=== PATIENT | female | born 1950 | race Caucasian/White ===

== ENCOUNTER 2016-11-02 13:51 | Emergency (ER) | payer MEDICARE ==
[~2016-11-02] VITALS: Ht 157.5 cm; Wt 52.3 kg
[~2016-11-02 13:51] MED LIST: ALEN70TA2 PO; ASCO100089 PO; ASPI-973 PO; ATRV10T PO; CALC600T12 PO; CART1TAB5 PO; CARV25TA2 PO; CHOL500051 PO; DULO60CA61 PO; ENAL5TAB PO; HYDR-4003 PO; HYDR200T5 PO; HYDR25TA4 PO; LACT1CAP65 PO; MELA1TAB9 PO; METH-313 PO; METH25VI21 IM; MINO100C3 PO; MULT1CAP33 PO; POTA99TA21 PO; TRAZ-115 PO
[2016-11-02 13:55] VITALS: BP 79/51; PULSE 84; RESP 14; O2SAT 98
[2016-11-02] MEDS ORDERED: 0.9% Sodium Chloride 1,000 ML IV ONE (14:12)
[2016-11-02] MEDS ORDERED: Ondansetron 2 mg/mL 2 mL Inj IVPUSH PRN (14:15)
[2016-11-02 15:00] VITALS: BP 115/65; PULSE 82; RESP 14; O2SAT 97
[2016-11-02 15:25] LABS: BASOPHILS % (AUTO) 0.2 % (0-3); EOSINOPHILS % (AUTO) 0.6 % (0-5); MONOCYTES % (AUTO) 8.9 % (4-12); Mean Corpuscular Hemoglobin 32.4 pg (27.0-35.0); Mean Corpuscular Volume 101.1 fL (81-100); NEUTROPHILS % (AUTO) 85.6 % (40-74); Platelet Count 207 bil/L (150-400)
[2016-11-02] MEDS ORDERED: Iohexol 300 mg/mL 30 mL Inj PO ONE (15:30)
[2016-11-02 15:50] LABS: Magnesium 1.4 mg/dL (1.6-2.6)
--- NOTE | 2016-11-02 17:20 | DRSVH ---
PROCEDURE: CT ABDOMEN AND PELVIS WITH CONTRAST ([id number]) INDICATIONS: eval for SBO, given oral contrast TECHNIQUE: After the administration of oral contrast and intravenous contrast, 5 mm thick sections acquired from the diaphragm to the symphysis. 5 mm coronal and sagittal reformats were acquired. For radiation d ose reduction, the following was used: automated exposure control, adjustment of mA and/or kV accord ing to patient size. COMPARISON: [facility], CT, ABD/PELVIS W/O CON (PNL), 12/16/2012, 18:41. [facility], CT, CT CHEST WO CON, 11/27/2015, 11:00. FINDINGS: Image quality: Excellent. ABDOMEN: Lung bases: Lung bases are clear. Heart size is normal. Solid organs: Intrahepatic biliary ductal dilatation is seen in left and right lobes of the liver. D istal common bile duct is also markedly dilated measuring 16 mm. No definite radiopaque calculus is s een gallbladder is contracted therefore evaluation for wall thickening is precluded. No definite gall stones are identified. Pancreas is atrophic. Spleen and adrenal glands unremarkable. Kidneys grossly unremarkable. No hydronephrosis. Subcentimeter possible left renal cyst although too small to charact erize image 26 series 2. Peritoneum and bowel: Numerous dilated small bowel loops are present measuring up to 3.9 cm, and the re are scattered air-fluid levels. Distal small bowel and cecal wall thickening is present, for examp le images 21-41 series 2 in the right lower quadrant. No abscess seen. The colon is relatively decomp ressed. The rectum is decompressed. No free air or free fluid. Small amount of fluid seen within the distal esophagus. This raises the possibility of esophageal dysmotility or gastroesophageal reflux. Nodes and vessels: No retroperitoneal or mesenteric adenopathy by size criteria. Aorta and inferior vena cava are normal in size. Miscellaneous: No ventral hernias. PELVIS: Genitourinary: The bladder is largely decompressed therefore unremarkable Miscellaneous: No inguinal hernias or adenopathy. Bones: No suspicious bony lesions. Prominent degenerative cystic change in the right superior acetab ulum No vertebral body compression fractures. Extensive spinal instrumentation as before. IMPRESSION: Small bowel obstruction, although the transition point is unclear, probably distal small bowel given the relative decompression of the colon. Distal small bowel and cecal wall thickening is also noted, suggesting inflammatory bowel disease versus infectious enterocolitis (ischemic etiology is within th e differential although probably less likely). Please correlate clinically Intrahepatic biliary ductal dilatation seen within the left and right hepatic lobes, and extrahepatic bile duct dilatation. No visualized etiology by CT. Please correlate clinically and with LFTs. As cl inically warranted, further assessment with ERCP could be performed. Dictated by: Torin Reza M.D. on 11/02/2016 at 17:07 Approved by: Torin Reza M.D. on 11/02/2016 at 17:18
[2016-11-02 18:11] VITALS: BP 95/57; PULSE 93; RESP 18; O2SAT 95
--- NOTE | 2016-11-02 18:25 | ED.REPORT ---
HPI-General Illness Date of Service Nov 02, 2016 ED Provider: Daniele Felix MD History of Present Illness: Katia Barnes is a 66 year old woman with a PMH of ascending colon strictures being managed by Dr. Chauhan, she is scheduled to have upper and lower endoscopy on 11/12/16 in anticipation of surgical management of the above along with cholecystectomy for choledocalithiasis, and a pancreatic cyst. She presents with a 3 day history of nausea, no BMs, and minimal flatulence. She states that on Tuesday she was going to picker tender her grandkids, and in anticipation of this took 2 immodium AD in order to preclude her chronic diarrhea. Since that time she has felt increasingly bloated and has suffered from the above symptoms. Nursing Notes Stated Complaint: ABDOMINAL PAIN Chief Complaint: Female Abdominal Pain Nursing Notes Reviewed: Yes Allergies: Coded Allergies: Sulfa (Sulfonamide Antibiotics) (Verified Allergy, Unknown, enlarged liver , 05/26/16) hydromorphone HCl (Verified Adverse Reaction, Intermediate, Hallucinations , 07/02/16) has had morphine and did not experianced any hallucinations with it. Scheduled Alendronate Sodium (Fosamax) 70 Mg Tablet 70 MG PO WEEKLY Ascorbic Acid (Vitamin C) 1,000 Mg Tab.chew 1,000 MG PO QAM Aspirin (Aspirin) 81 Mg Tablet 81 MG PO DAILY Atorvastatin (Lipitor) 10 Mg Tab 10 MG PO DAILY Calcium Carbonate (Calcium) 600 Mg Tablet 1,200 MG PO HS Cartilage/Collagen/Bor/Hyalur (Joint Health Tablet) 40 Mg-10 Mg-5 Mg-3.3 Mg Tablet 1 EACH PO HS Carvedilol (Carvedilol) 25 Mg Tablet 50 MG PO AM Carvedilol (Carvedilol) 25 Mg Tablet 25 MG PO PM Cholecalciferol (Vitamin D3) (Vitamin D) 5,000 Unit Capsule 5,000 UNIT PO HS Duloxetine (Duloxetine) 60 Mg Capsule.dr 60 MG PO QAM Enalapril Maleate (Enalapril Maleate) 5 Mg Tablet 5 MG PO QAM Hydrochlorothiazide (Hydrochlorothiazide) 25 Mg Tablet 25 MG PO QAM Hydroxychloroquine Sulfate (Hydroxychloroquine Sulfate) 200 Mg Tablet 200 MG PO BID Lactobacillus Acidophilus (Probiotic) 1 Each Capsule 1 EACH PO DAILY Melatonin (Melatonin) 1 Mg Tablet 3 MG PO HS Methotrexate PF (Methotrexate PF) 25 Mg/1 Ml Vial 25 MG IM WEEKLY Minocycline (Minocycline) 100 Mg Capsule 100 MG PO BID Multivitamin (Multivitamins) 1 Each Capsule 1 EACH PO DAILY Potassium Gluconate (Potassium) 99 Mg Tablet 99 MG PO DAILY Trazodone (Trazodone) 50 Mg Tablet 50 MG PO HS Scheduled PRN Hydrocodone-Acetaminophen 5-325 mg (Hydrocodone-Acetaminophen 5-325 mg) 1 Each Tablet 1 EACH PO QID PRN PRN For Pain Methocarbamol (Robaxin-750) 750 Mg Tablet 1.5 TAB PO BID PRN PRN For Spasm General Time Seen by MD: 12:30 Chief Complaint Abdominal pain Hx Obtained From: Patient Arrived By: Walk-in Onset Occurred: 2 days ago Symptom Duration: Since onset Location: : Abdomen Quality: Cramping Radiation: : Does not radiate Severity: Current: Mild Severity: Maximum: Moderate Recent Healthcare: Recent doctor visit Similar Sx Previous: No Past Medical History Past Medical History RA HTN CAD Heart murmur GI bleed Anxiety Depression Sleep apnea Two prior dislocations of the R hip prior to 08/13/2014 Past Surgical History Right total hip replacement Subtotal gastrectomy Cardiac Cath 11/2102 T6-S1, L1-L5 fusion C/S x2 Reports: Hysterectomy Smoking History Former Smoker Social History Alcohol Use: "Social" Drug Use: Denies drug use Other Social History: Good social support, Ambulatory Status Independent Review of Systems Full Review of Systems GI: Reports: Abdominal pain, Anorexia, Constipation, Nausea Complete sys rev & neg: except as marked. Physical Exam Gen: A/O x3 pleasant cooperative female in mild acute distress secondary to abdominal pain Neck: Supple, non-tender, no JVD, no thyromegally HEENT: PERRL, EOMI, no jaundice CV: RRR, no murmurs rubs or gallops Resp: Lungs CTA BL, no wheezing rales or rhonchi Abdomen: Firm distended with palpable stool, diffusely tender to palpation most acutely in RLQ, no organomegally Extr: No cyanosis clubbing or edema Neuro: CN 2-12 grossly intact, no focal neurologic deficit Vital Signs Vital Signs Date Time Temp Pulse Resp B/P Pulse Ox O2 Delivery O2 Flow Rate FiO2 11/02/16 18:41 36.7 97 18 94/67 96 Nasal Cannula 2 11/02/16 18:11 36.8 93 18 95/57 95 Nasal Cannula 2 11/02/16 15:00 82 14 115/65 97 Nasal Cannula 2 11/02/16 13:55 36.2 84 14 79/51 98 Room Air Initial VS: Reviewed Interpretation & Diagnostics Interpretation & Diagnostics: CT reveals distal SBO, NG tube has been placed and is draining thick greenish brown semi-solic liquid. Lab Results Interpretation Result Diagram: 11/02/16 1515 11/02/16 1515 Test 11/02/16 14:12 11/02/16 15:15 Urine Color Dark yellow (YELLOW) Urine Appearance Hazy (CLEAR,HAZY) Urine pH 5.0 (5.0-8.0) Urine Specific [place] 1.030 (1.003-1.035) Urine Protein Negativemg/dL (NEG,TRACE) Urine Glucose (UA) Negativemg/dL (NEGATIVE) Urine Ketones Tracemg/dL (NEGATIVE) Urine Occult Blood Negative (NEGATIVE) Urine Nitrite Negative (NEGATIVE) Urine Bilirubin Negative (NEGATIVE) Urine Urobilinogen Normalmg/dL (NORMAL) Urine Leukocyte Esterase Negative (NEGATIVE) Urine RBC 0-2/hpf (0-2) Urine WBC 0-5/hpf (0-5) Urine Epithelial Cells Few/hpf (NONE-MOD) Urine Crystals None seen (NONE SEEN) Urine Bacteria Few/hpf (NONE-FEW) Urine Hyaline Casts >20/lpf (NONE) Urine Granular Casts None seen (NONE SEEN) Urine Waxy Casts None seen (NONE SEEN) Urine Red Blood Cell Casts None seen (NONE SEEN) Urine White Blood Cell Casts None seen (NONE SEEN) Urine Mucus Present (None Seen) Urine Trichomonas None seen (NONE SEEN) Urine Yeast None (NONE SEEN) Urinalysis Comment None Urine Culture Reflexed Not indicated White Blood Count 12.1th/mm3 (3.8-10.1) Red Blood Count 3.64mil/mm3 (3.90-5.20) Hemoglobin 11.8g/dL (12.0-15.6) Hematocrit 36.8% (35.0-46.0) Mean Corpuscular Volume 101.1fL (81-100) Mean Corpuscular Hemoglobin 32.4pg (27.0-35.0) Mean Corpuscular Hemoglobin Concent 32.1% (32.0-37.0) Red Cell Distribution Width 12.6% (12.3-15.4) Platelet Count 207bil/L (150-400) Neutrophils (%) (Auto) 85.6% (40-74) Lymphocytes (%) (Auto) 4.5% (14-46) Monocytes (%) (Auto) 8.9% (4-12) Eosinophils (%) (Auto) 0.6% (0-5) Basophils (%) (Auto) 0.2% (0-3) Sodium Level 136mEq/L (134-144) Potassium Level 4.3mEq/L (3.5-5.2) Chloride Level 99mEq/L (97-108) Carbon Dioxide Level 22mmol/L (18-29) Blood Urea Nitrogen 34mg/dL (8-27) Creatinine 0.93mg/dL (0.57-1.00) Estimat Glomerular Filtration Rate 86mL/min (>59) Glucose Level 98mg/dL (60-99) Lactic Acid Level 1.9mmol/L (0.4-2.0) Calcium Level 9.7mg/dL (8.5-10.1) Magnesium Level 1.4mg/dL (1.6-2.6) Total Bilirubin 0.6mg/dL (0.0-1.2) Aspartate Amino Transf (AST/SGOT) 31U/L (0-50) Alanine Aminotransferase (ALT/SGPT) 44U/L (0-32) Alkaline Phosphatase 253U/L (25-165) Total Protein 5.6g/dL (6.4-8.4) Albumin 3.4g/dL (3.4-5.0) Lipase 12U/L (13-60) Re-Eval/Medical Decision Med Decision/Clinical Course Surgery was consulted and given the patient's imminent evaluatnion and potential surgical managment at [facility] it was felt to be prudent to facilitate transfer to for management of this SBO, and subsequent upper and lower endoscopy as planned with potential surgical intervention to follow. Discharge & Departure Shift Change Sign-Out Patient Care Transferred: Yes Discussed Complaint(s): Yes Laboratory Evaluation: Lab evaluation discussed Imaging Studies: Imaging discussed Response to Therapy: Improved Primary Impression: Small bowel obstruction Disposition: Transfer, Acute Care Facility ([facility]) Discharge Condition All VS Reviewed: Yes Condition: Stable Patient Instructions: Acute Abdominal Pain (ED) Additional Instructions: We are transferring your to [facility] to consolidate your care into the institution that will be ultimately conducting the surgery to fix your bowel and abdominal issues. Referrals: Emily Briceno (PCP) EDSupervising Provider for APC: Daniele Felix MD Attending Statement I saw and evaluated patient with resident. I evaluated the patient independently and agree with plan. 66-year-old female with history of descending colon strictures presenting with small bowel obstruction. Surgery requested transfer to [facility] where her primary team exists. She is transferred via BLS. NG tube in place. copies to: Emily Briceno David E DO Nov 02, 2016 17:52 Daniele Felix MD Nov 02, 2016 19:10
[2016-11-02 18:41] VITALS: BP 94/67; PULSE 97; RESP 18; O2SAT 96
[2016-11-02 18:54] LABS: APPEARANCE,URINE HAZY (CLEAR,HAZY); COLOR,URINE DARK YELLOW (YELLOW)
[2016-11-02 18:55] LABS: OCCULT BLOOD,URINE NEGATIVE (NEGATIVE); UROBILINOGEN,URINE NORMAL (NORMAL)
== END 2016-11-02 19:02 | disposition short-term general hospital (02) ==
LOC: SED 13:51
DX: K56.60 Unspecified intestinal obstruction (principal); I11.9 Hypertensive heart disease without heart failure; I25.10 Atherosclerotic heart disease of native coronary artery without angina pectoris; M06.9 Rheumatoid arthritis, unspecified; Z95.5 Presence of coronary angioplasty implant and graft; Z90.3 Acquired absence of stomach [part of]; Z79.82 Long term (current) use of aspirin; Z87.891 Personal history of nicotine dependence; Z88.2 Allergy status to sulfonamides; Z88.5 Allergy status to narcotic agent
CPT/HCPCS: 36415; 43753; 74177; 80053; 81000; 83605; 83690; 83735; 85025; 96361; 96374; 96375; 96376; 99285; J2270; J2405; J7030; Q9967

== ENCOUNTER 2016-12-13 13:29 | Emergency (ER) | payer MEDICARE ==
[~2016-12-13] VITALS: Ht 154.9 cm; Wt 46.8 kg
[2016-12-13 14:16] VITALS: BP 122/81; RESP 18; O2SAT 96
--- NOTE | 2016-12-13 15:03 | ED.REPORT ---
HPI-General Illness Date of Service Dec 13, 2016 ED Provider: Hansel Arora MD The patient is a 66 year old female with history of recurrent strep pharyngitis who presents to the emergency department complaining of a sore throat that began 2 days ago. She describes the pain as "burning." She has also noticed a runny nose. Her symptoms are similar to when she was previous diagnosed with strep. No one else around her has been sick with similar symptoms. She denies dysphagia, difficulty breathing, chest pain, ear pain, sinus pressure, fever, chills, cough, nausea or vomiting. Nursing Notes Stated Complaint: POSSIBLE STREP THROAT Chief Complaint: ENT & Mouth Nursing Notes Reviewed: Yes Allergies: Coded Allergies: Sulfa (Sulfonamide Antibiotics) (Verified Allergy, Unknown, enlarged liver , 05/26/16) hydromorphone HCl (Verified Adverse Reaction, Intermediate, Hallucinations , 07/02/16) has had morphine and did not experianced any hallucinations with it. Scheduled Alendronate Sodium (Fosamax) 70 Mg Tablet 70 MG PO WEEKLY Ascorbic Acid (Vitamin C) 1,000 Mg Tab.chew 1,000 MG PO QAM Aspirin (Aspirin) 81 Mg Tablet 81 MG PO DAILY Atorvastatin (Lipitor) 10 Mg Tab 10 MG PO DAILY Calcium Carbonate (Calcium) 600 Mg Tablet 1,200 MG PO HS Cartilage/Collagen/Bor/Hyalur (Joint Health Tablet) 40 Mg-10 Mg-5 Mg-3.3 Mg Tablet 1 EACH PO HS Carvedilol (Carvedilol) 25 Mg Tablet 50 MG PO AM Carvedilol (Carvedilol) 25 Mg Tablet 25 MG PO PM Cholecalciferol (Vitamin D3) (Vitamin D) 5,000 Unit Capsule 5,000 UNIT PO HS Duloxetine (Duloxetine) 60 Mg Capsule.dr 60 MG PO QAM Enalapril Maleate (Enalapril Maleate) 5 Mg Tablet 5 MG PO QAM Hydrochlorothiazide (Hydrochlorothiazide) 25 Mg Tablet 25 MG PO QAM Hydroxychloroquine Sulfate (Hydroxychloroquine Sulfate) 200 Mg Tablet 200 MG PO BID Lactobacillus Acidophilus (Probiotic) 1 Each Capsule 1 EACH PO DAILY Melatonin (Melatonin) 1 Mg Tablet 3 MG PO HS Methotrexate PF (Methotrexate PF) 25 Mg/1 Ml Vial 25 MG IM WEEKLY Minocycline (Minocycline) 100 Mg Capsule 100 MG PO BID Multivitamin (Multivitamins) 1 Each Capsule 1 EACH PO DAILY Potassium Gluconate (Potassium) 99 Mg Tablet 99 MG PO DAILY Trazodone (Trazodone) 50 Mg Tablet 50 MG PO HS Scheduled PRN Hydrocodone-Acetaminophen 5-325 mg (Hydrocodone-Acetaminophen 5-325 mg) 1 Each Tablet 1 EACH PO QID PRN PRN For Pain Methocarbamol (Robaxin-750) 750 Mg Tablet 1.5 TAB PO BID PRN PRN For Spasm General Time Seen by MD: 14:59 Chief Complaint Sore throat Hx Obtained From: Patient Arrived By: Walk-in Sudden in Onset?: Yes Onset Occurred: 9 - 12 hours ago Symptom Duration: Since onset Quality: Painful Radiation: : Does not radiate Severity: Current: Moderate Severity: Maximum: Moderate Recent Healthcare: No recent doctor visit, No recent hospitalization Similar Sx Previous: Yes Past Medical History Past Medical History RA HTN CAD Heart murmur GI bleed Anxiety Depression Sleep apnea Two prior dislocations of the R hip prior to 08/13/2014 Crohn's Colitis Past Surgical History Right total hip replacement Subtotal gastrectomy Hemicolectomy Cardiac Cath 11/2102 T6-S1, L1-L5 fusion C/S x2 Cholecystectomy Reports: Hysterectomy Family History Noncontributory Smoking History Former Smoker Social History Alcohol Use: "Social" Drug Use: Denies drug use Other Social History: Good social support, , Local resident Ambulatory Status Independent Review of Systems Full Review of Systems Constitutional: Denies: Chills, Fever Ears / Nose / Throat: Reports: Sore throat, Throat pain, Denies: Earache bilateral, Nasal congestion, Sinus problem Respiratory: Denies: Non-productive cough, Shortness of breath Cardiovascular: Denies: Chest pain GI: Denies: Dysphagia, Nausea, Vomiting Allergy / Immune: Reports: Rhinorrhea Complete sys rev & neg: except as marked. Physical Exam Vital Signs Vital Signs Date Time Temp Pulse Resp B/P Pulse Ox O2 Delivery O2 Flow Rate FiO2 12/13/16 15:43 36.4 112/56 12/13/16 14:16 38.1 97 18 122/81 96 Room Air Initial VS: Reviewed Head / Eyes: Atraumatic, Normocephalic, PERRL Cardiovascular: Regular rate & rhythm, Heart sounds normal, Intact distal pulses Lymphatic: No lymphadenopathy Extremities: Vascular intact, Neuro intact, No swelling, No tenderness Skin: Warm, Dry, No cyanosis Neurologic: Alert, Oriented, Nonfocal Psychiatric: Mood/affect normal, Behavior normal, Normal thought content General/Constitutional: Awake, Alert, Cooperative ENT: Airway patent, Mucous membranes moist, Pharynx NL, No peritonsillar abscess, Tympanic membs NL, Ext aud canal NL, Mastoid area NL, Nose exam NL, No sinus tenderness, No facial swelling Pharynx / Tonsils / Uvula: Negative: Peritonsil abscess L, Peritonsil abscess R , Pharyngeal erythema, Tonsillar erythema L, Tonsillar erythema R, Tonsillar exudate L, Tonsillar exudate R, Tonsillar swelling L, Tonsillar swelling R Able to swallow her own secretions. Neck: Supple, No meningismus, Full range of motion, No adenopathy, No swelling , Non-tender, No midline vertebral tend, No masses Respiratory / Chest: Atraumatic, Breath sounds NL, Breath sounds = bilat, No respiratory distress, No rales, No rhonchi, No wheezing, No retractions, No stridor Abdomen: Atraumatic, Soft, Non-tender, No guarding, No rebound, BS normoactive , No distention Well healed midline surgical scar. Lower Extremity / Pelvis / MS: Neurologic intact, Vascular intact, No edema No calf swelling or tenderness. Interpretation & Diagnostics Interpretation & Diagnostics: Rapid strep: negative Re-Eval/Medical Decision Med Decision/Clinical Course The patient is a 66 year old female with history of recurrent strep pharyngitis who presents to the emergency department complaining of a sore throat that began 2 days ago. She describes the pain as "burning." She has also noticed a runny nose. Her symptoms are similar to when she was previous diagnosed with strep. No one else around her has been sick with similar symptoms. She denies dysphagia, difficulty breathing, chest pain, ear pain, sinus pressure, fever, chills, cough, nausea or vomiting. Here in the emergency department the patient is clinically stable and in no apparent distress. Initial vital signs from triage were documented as fever of 38.1 however the patient denies any fever and in discussing this with the nurse it sounds as if this vital sign was entered in error. When her temperature is rechecked and she is not febrile. Rapid strep: negative Treated with Tylenol here in the emergency room. Termination reveals no findings suggestive of streptococcal or bacterial pharyngitis. There is no tonsillar swelling or exudate. Uvula is midline. No evidence of peritonsillar abscess or findings suggestive of retropharyngeal abscess. No evidence of airway swelling or anaphylactic reaction. Lungs are clear. Patient nontoxic and well-appearing. We will send her throat swab for culture however at this time I do not feel that any empiric antibiotics or further workup is immediately indicated. Overall presentation seems most consistent with viral pharyngitis and I recommended that she take [id number] Tylenol or ibuprofen and use salt water gargles. Patient will follow-up with her primary care doctor later this week.Prior to discharge follow-up and return precautions were reviewed in detail with the patient who verbalized understanding and agreement with the plan. The patient was discharged in stable condition. Source of Hx: Old records Time of Eval: 15:38 Re-Evaluation/Progress Note: Discussed exam findings, diagnosis, and plan for discharge. All questions were addressed. Counseled Regarding: Diagnosis, Lab results, Need for follow-up, When/why to return to ED Discharge & Departure Primary Impression: Viral pharyngitis Additional Impressions: History of streptococcal pharyngitis History of Crohn's disease Disposition: Home Discharge Condition All VS Reviewed: Yes Condition: Stable Patient Instructions: Pharyngitis (ED) Additional Instructions: Thank you for seeking care at the emergency room. Our primary goal today in the ED was to evaluate you for any life-threatening conditions. Your evaluation was reassuring. I do not believe you have strep throat at this time. I believe your symptoms are related to a viral pharyngitis. I recommend gargling with salt water. Eat foods that will not irritate your throat. You should follow-up with your primary doctor in the next week if your symptoms continue. You should return to the ED immediately if you develop fevers, vomiting, difficulty breathing, difficulty swallowing, throat swelling, or any other concerning signs or symptoms. Thank you for letting us partake in your care today. Referrals: Emily Briceno (PCP) Scribe Attestation Portions of this note were transcribed by Carrie Goldberg. I, Dr. Arroa personally performed the history, physical exam and medical decision-making; I reviewed and confirmed the accuracy of the information in the transcribed note. Signed by: Jeremy Cadet, 12/13/2016 at 1600. copies to: Emily Briceno Beck O MD Dec 13, 2016 15:03 Carrie Goldberg Dec 13, 2016 15:08
[2016-12-13 15:43] VITALS: BP 112/56
== END 2016-12-13 15:50 | disposition home or self-care (01) ==
LOC: SED 13:29
DX: J02.9 Acute pharyngitis, unspecified (principal); I10 Essential (primary) hypertension; I25.10 Atherosclerotic heart disease of native coronary artery without angina pectoris; Z90.710 Acquired absence of both cervix and uterus; Z87.891 Personal history of nicotine dependence; Z79.82 Long term (current) use of aspirin; Z79.899 Other long term (current) drug therapy; Z88.2 Allergy status to sulfonamides; Z88.5 Allergy status to narcotic agent; Z87.898 Personal history of other specified conditions

== ENCOUNTER 2017-03-31 08:32 | Day surgery (SDC) | payer MEDICARE ==
[~2017-03-31] VITALS: Ht 154.9 cm; Wt 49.4 kg
[~2017-03-31 08:32] MED LIST changes: +Lactated Ringer's 1,000 ML IV ONE; +MONT10TA23 PO; +PRE10 PO
[2017-03-31] MEDS ORDERED: Ondansetron 2 mg/mL 2 mL Inj ONE (08:33)
[2017-03-31] MEDS ORDERED: Propofol 10,000 mCg/mL 20 mL Inj ONE (08:33)
[2017-03-31] MEDS ORDERED: fentaNYL-PF 50 mCg/mL 2 mL Inj ONE (08:33)
[2017-03-31 08:59] VITALS: BP 143/74; PULSE 83; RESP 18; O2SAT 97
[2017-03-31] MEDS ORDERED: LOPE-147 PO (09:07)
[2017-03-31] MEDS ORDERED: OMEP20CA11 PO (09:07)
--- NOTE | 2017-03-31 09:29 | PCM.HPANE ---
Patient Data Date of Service: Mar 31, 2017 (0926) Surgeon Admitting Provider: Attending Provider:Krystal Brush MD Primary Care Physician:Emily Briceno Other Provider:Nikolas Sutton Anesthesia Reason for Visit Abnormal Finding On Imaging Ht/WT & BMI Height (Feet): 5 Height (Inches): 1 Weight (Kilograms): 49.44 Body Mass Index 20.00 Allergies Coded Allergies: Sulfa (Sulfonamide Antibiotics) (Verified Allergy, Unknown, enlarged liver , 05/26/16) hydromorphone HCl (Verified Adverse Reaction, Intermediate, Hallucinations , 07/02/16) has had morphine and did not experianced any hallucinations with it. Past Anesthesia History Anesthesia History: Denies:: Abnormal Airway, Anesthesia Reactions, Difficult Intubation, Fam Anesthesia Reaction, Fam Malignant Hypertherm, Malignant Hyperthermia Diabetes History Hx Diabetes?: No Type of Diabetes: Type II Glycemic Control: Oral Medication MRSA MRSA: No Medications Blood Thinner: Aspirin Home Meds Incl Beta Kandace: Yes Date Beta Kandace Taken: Mar 30, 2017 Time Beta Kandace Taken: 2029 Active Scripts Atorvastatin (Lipitor)10 Mg Tab10 Mg PO DAILY #30 TABLET Ref 0 Prov:Sam Dutta MD 07/04/16 Reported Medications Loperamide HCl (Imodium A-D)2 Mg Capsule2 Mg PO DAILY 03/31/17 Omeprazole 20 Mg Capsule.dr20 Mg PO DAILY Ref 0 03/31/17 Prednisone (PredniSONE)10 Mg Gjokig29 Mg PO DAILY Ref 0 03/29/17 Potassium Gluconate (Potassium)99 Mg Ybhkvw30 Mg PO DAILY 08/06/16 Cartilage/Collagen/Bor/Hyalur (Joint Health Tablet)40 Mg-10 Mg-5 Mg-3.3 Mg Tablet1 Each PO HS 07/02/16 Cholecalciferol (Vitamin D3) (Vitamin D)5,000 Unit Capsule5,000 Unit PO HS 07/02/16 Calcium Carbonate (Calcium)600 Mg Tablet1,200 Mg PO HS 07/02/16 Multivitamin (Multivitamins)1 Each Capsule1 Each PO DAILY 07/02/16 Hydrocodone-Acetaminophen 5-325 mg 1 Each Tablet1 Each PO QID PRN For Pain 07/02/16 Minocycline 100 Mg Msqelxo305 Mg PO BID 07/02/16 Melatonin 1 Mg Tablet3 Mg PO HS 11/4/16 Trazodone 50 Mg Orkide13 Mg PO HS 05/25/16 Duloxetine 60 Mg Capsule.dr60 Mg PO QAM 05/25/16 Carvedilol 25 Mg Mxqdqe46 Mg PO PM 07/21/14 Carvedilol 25 Mg Syrskj91 Mg PO AM 07/21/14 Hydrochlorothiazide 25 Mg Gjbrpy39 Mg PO QAM 07/20/14 Hydroxychloroquine Sulfate 200 Mg Hsywdm840 Mg PO BID 07/08/14 Ascorbic Acid (Vitamin C)1,000 Mg Tab.chew1,000 Mg PO QAM 07/07/14 Lactobacillus Acidophilus (Probiotic)1 Each Capsule1 Each PO DAILY 07/07/14 Methocarbamol (Robaxin-750)750 Mg Tablet1.5 Tab PO BID PRN For Spasm 07/07/14 Enalapril Maleate 5 Mg Tablet5 Mg PO QAM 07/07/14 Discontinued Reported Medications Montelukast 10 Mg Wy[place]ac85 Mg PO HS Ref 0 03/29/17 Methotrexate PF 25 Mg/1 Ml Vial25 Mg IM WEEKLY 07/02/16 Alendronate Sodium (Fosamax)70 Mg Afmnuo08 Mg PO WEEKLY 07/07/14 Discontinued Scripts Aspirin 81 Mg Kcevbk49 Mg PO DAILY #60 BOTTLE Ref 0 Prov:Sam Dutta MD 07/04/16 History History of ENT Problems?: No HEENT History: Denies:: Abnormal Airway Difficult Intubation Dysphagia Hearing Problem Denture Type: None Teeth Condition: Within Normal Limits (UPPER IMPLANT, NOT REMOVABLE) Hx of Heart Problems?: Yes Cardiovascular History: Positive for:: Cardiac Surgery (Heart Cath 12/09) Edema (hands) Heart Murmur Hypertension Irregular Heartbeat (Palpitations) Denies:: AICD Atrial Fibrillation Chest Pain Congestive Heart Failure Pacemaker Valvular Heart Disease Hx of Respiratory Problem?: No Respiratory History: Positive for:: Dyspnea (Particularly at night) Denies:: Asthma COPD Cough Hemoptysis Pneumonia Tuberculosis Use of C-PAP Machine Hx Neurologic Problems?: No Neurological History: Denies:: CVA Dementia Hx of GI Problems?: Yes Hx of Problems?: Yes Genitourinary History: Positive for:: Urinary Tract Infection (HX OF UTI'S/ SEPSIS-HOSPITALIZATION) Denies:: HX of Hemodialysis (HX OF ACUTE SEPSIS/RENAL FAILURE) Kidney Stones HX of Peritoneal Dialysis: No Female Hx: Positive for:: Pelvic Inflammatory (s/p hysterectomy) Denies:: Currently Endometriosis Problems with Breasts? 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) Denies:: Pressure Ulcers Hx Musculoskeletal Problems?: Yes Musculoskeletal History: Positive for:: Back Injury (T6-S1, L1-L5 fusion) Degenerative Joint (RT HIP=CURRENT PROBLEM) Joint Replacement (rt.Total hip X3) Musculoskeletal Trauma (rt.hip dislocation x2,) Denies:: Fibromyalgia Hx of Psycho/Social Problems?: Yes Psycho Social History: Positive for:: Anxiety Denies:: Bipolar Disorder Hx Depression Suicide Attempt Hx Surgeries?: Yes (GASTRIC BYPASS 3 HIP REPLACEMENTS HYSTERECTOMY C SECTION X2 ) Hx Any Other Health Problems?: Yes Other History: Positive for:: Hospitalization (GI BLEED) Denies:: Cancer Endocrine Disease Thyroid Disease History Blood Transfusions: Positive for:: Blood Transfusions Denies:: Blood Transfuse Reaction Hx Diabetes: No Hx Alcohol Use: Yes (WINE ON SOME WEEKENDS)Hx Substance Use: No Smoking Status: Former Smoker Have You Smoked inLast 12 mo: No Stop/Bang Treated for Sleep Apnea?: No Do You Have a CPAP Machine?: No S-Snoring: Do You Snore Loudly: No T-Tired: feel tired, fatigued: No O-Obsered: Observed not breath: No P-Blood Pressure: treated: Yes B- Body Mass Index > 35 kg/m2: No A- Age over 50: Yes N- Neck Large Circumference: No G- Gender Male: No NEERU Total Score: 2 NEERU Risk Assessment: Low Risk, <3 Yes Risk Assessment Category Category 1A: Patient has history of documented sleep apnea, and HAS NOT received any narcotic, sedative or anesthesia administration during this stay. Category 1B: Patient has history of documented sleep apnea, and HAS received any narcotic , sedative or anesthesia administration during this stay Category 2: Patient has SUSPECTED Obstructive Sleep Apnea, and HAS received any narcotic , sedative or anesthesia administration during this stay. Category 3: Patient has SUSPECTED Obstructive Sleep Apnea and HAS NOT received narcotic, sedative or anesthesia administration during this stay. Category 4: Outpatient in Procedural Areas with known sleep apnea or who screen positive for High Risk via the STOP/BANG questionnaire. Exam Exam Vital Signs Vital Signs Date Time Temp Pulse Resp B/P Pulse Ox O2 Delivery O2 Flow Rate FiO2 03/31/17 08:59 36.6 83 18 143/74 97 Room Air General Appearance: Alert, Oriented X3, Cooperative HEENT/AIRWAY: MP 1 Lungs: Clear to Auscultation Heart: Exam Unremarkable Plan Impression Patient chart reviewed, patient interviewed and anesthestic plan with risks, benefits, and alternatives discussed, and informed consent obtained. Severino Alaniz MD Mar 31, 2017 09:28
[2017-03-31] MEDS ORDERED: Lactated Ringer's 1,000 ML IV SCH (09:30)
[2017-03-31] MEDS ORDERED: MetoCLOpramide 5 mg/mL 2 mL Inj IVPUSH PRN (09:30)
[2017-03-31] MEDS ORDERED: Ondansetron 2 mg/mL 2 mL Inj IVPUSH PRN (09:30)
[2017-03-31 10:38] VITALS: BP 155/87; PULSE 79; RESP 16; O2SAT 100
--- NOTE | 2017-03-31 10:38 | PCM.ANEP1 ---
Post Anesthesia PACU Phase 1 Assessment Vital Signs 100%, 82, 16, 155/87 Vital Signs Date Time Temp Pulse Resp B/P Pulse Ox O2 Delivery O2 Flow Rate FiO2 03/31/17 08:59 36.6 83 18 143/74 97 Room Air Anesthetic Administered: GA Level of Alertness: Awake, talking DELGADILLO's with Equal Strength: Yes Pain: No Nausea or Vomiting: No CV Function & Hydration Stable: Yes Airway Device: none Lungs: Clear to Auscultation Dermatome Level: Full Sensation Summary uneventful ga PACU Phase 2 Assessment Complications: No Follow up Care: No Patient Instructions Provided: N/A Severino Alaniz MD Mar 31, 2017 10:38
[2017-03-31 10:48] VITALS: BP 154/91; PULSE 75; RESP 16; O2SAT 98
[2017-03-31 10:58] VITALS: BP 162/89; PULSE 73; RESP 16; O2SAT 99
[2017-03-31 11:08] VITALS: BP 156/93; PULSE 76; RESP 16; O2SAT 99
--- NOTE | 2017-03-31 11:40 | ENDO ---
[address] [address] ENDOSCOPY PROCEDURE PATIENT: ONEL REICH : 1950 MR#: [id number] ADMIT: 03/31/2017 JOB ID: [id number] DATE: 03/31/2017 PROCEDURE: Endoscopic ultrasound. 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 The patient has no history of pancreatitis in the past. She also has an additional cyst in the distal portion of the pancreas that measured approximately 7 mm, that was seen on MRI. ANESTHESIA: Please see Dr. Severino Alaniz's anesthesia report for details regarding ASA classification, Mallampati score, and medications. INSTRUMENT USED: StartBull 160 AL5 linear echoendoscope. PROCEDURE DETAILS: After informed consent was obtained, the patient was brought into the GI suite, where she was placed on oxygen via nasal cannula, and monitored with continuous pulse oximeter, telemetry, and blood pressure monitoring. A time-out was performed, and then she was placed in a left lateral decubitus position, and medications were administered for sedation. The linear echoendoscope was then introduced through the bite block and advanced without difficulty to the second portion of duodenum. ENDOSCOPIC ULTRASOUND FINDINGS: Endoscopic ultrasound findings demonstrated the followin. In the neck of the pancreas, there measured an approximately 1.5 x 1 cm, well-circumscribed hypoechoic lesion. Appearance was consistent with a cyst. The cyst appeared larger than what we measured, as the cyst was not entirely visible on one view. The cyst did appear to communicate with the main pancreatic duct. Using a 22-gauge Pj-Cook core needle, a pass was made into the cyst. Initially, no fluid was obtained. At this point, there was some, what appeared to be tissue obtained, which was placed inside CytoLyt. We attempted another pass, and this time we obtained blood-tinged fluid, approximately 1.5 mL. This was sent for Red Path analysis. The remainder of the pancreas otherwise appeared unremarkable. I did not appreciate the smaller cyst in the distal portion of the pancreas. The pancreatic duct itself was not dilated, and appeared to be normal in course and caliber. 2. The bile duct was mildly dilated at approximately 8 mm. 3. Flow was seen in the portal vein, splenic vein, and splenic artery. 4. Celiac axis was identified and appeared unremarkable. 5. Examined portions of the left lobe of the liver appeared normal. IMPRESSION: 1. Cyst in the neck of the pancreas. 2. Dilated common bile duct. RECOMMENDATIONS: 1. Await cytology and fluid analysis results. Further plans pending above. 2. Follow up with Dr. Alexei Chauhan. COMPLICATIONS: None. ESTIMATED BLOOD LOSS: Less than 5 mL. MTDD
--- NOTE | 2017-04-04 16:29 | PATH ---
SURGICAL PATHOLOGY Attending Physician:Chris Hodgosn CASE STATUS: Signed Out PATIENT NAME: ONEL REICH PID: [id number] : 1950 DATE COLLECTED:03/31/2017 00:00 SPECIMEN: Pancreatic Cyst in Neck CLINICAL HISTORY: Pancreatic Cyst in Neck ICD-10 code not given FINAL DIAGNOSIS: PANCREATIC NECK CYST, CYTOLOGY: NEGATIVE FOR MALIGNANT CELLS. ICD10 K86.2 NOTE: Rare benign ductal cells are present in a background of acellular proteinaceous debris. No malignant cells are identified. GROSS DESCRIPTION: Received fresh on 04/01/2017 is approximately 30 cc of cloudy colorless fluid. Prepared are one cell block and one ThinPrep slide. Vo ICD-9 CODES: CPT CODES: 1: 79539, 61240 Electronically Signed Out Maddy Choi MD [facility] Pathology [facility] [address], [place] [address] Technical component performed at [facility], [facility] [address], [place], [address]
== END 2017-03-31 23:59 | disposition home or self-care (01) ==
LOC: END 08:32
PROVIDERS: ATTEND Internal Medicine Gastroenterology
DX: K86.2 Cyst of pancreas (principal); K83.8 Other specified diseases of biliary tract; K50.80 Crohn's disease of both small and large intestine without complications; Z90.49 Acquired absence of other specified parts of digestive tract; M06.9 Rheumatoid arthritis, unspecified; I10 Essential (primary) hypertension; Z87.891 Personal history of nicotine dependence